=== PATIENT | female | born 1990 | race Caucasian/White ===

== ENCOUNTER 2018-12-14 14:57 | Emergency (ER) | payer OTHER ==
[~2018-12-14] VITALS: Ht 165.1 cm; Wt 88.0 kg
[~2018-12-14 14:57] MED LIST: ADVIL MIGRAINE200 MG PO; CIPRO500 MG PO; DOXYCYCLINE HY100 MG PO; ELDERBERRY PO; FIORICET 50-321 EACH PO; FISH OIL 1,0001 EAC2 PO; GINGER500 MG PO; IBUPROFEN800 MG PO; NAPROSYN500 MG PO; NAPROXEN500 MG PO; NON-ASPIRIN EX500 MG PO; NORCO 5-325 TA1 EACH PO; OYSTER SHELL C1 EA12 PO; PRENATAL CAPLE1 EACH PO; PRENATAL CAPSU1 EACH PO; PYRIDIUM200 MG PO; ULTRAM50 MG PO; VITAFOL-OB+DHA1 EACH PO; ZOFRAN ODT4 MG PO; ZOFRAN4 MG PO
== END 2018-12-14 16:56 | disposition home or self-care (01) ==
LOC: ED 14:57
DX: M54.9 Dorsalgia, unspecified (principal); J45.909 Unspecified asthma, uncomplicated; Z87.891 Personal history of nicotine dependence; Z88.1 Allergy status to other antibiotic agents
CPT/HCPCS: 71046; 81001; 84703; 99284-25